=== PATIENT | male | born 2000 | race Caucasian/White ===

== ENCOUNTER 2019-03-12 19:25 | Emergency (ER) | payer OTHER, SELFPAY ==
[2019-03-12 19:26] VITALS: BP 114/75; PULSE 103; RESP 15; TEMP 36.9; O2SAT 98; BMI 23.9
--- NOTE | 2019-03-12 19:34 | ED.DCSUM_ITS ---
History of Present Illness Chief Complaint: Upper Extremity Injury Informant: Patient Onset: Yesterday Mechanism/Context: Blunt Injury - Right thumb. States he bent it back while playing hockey last evening Current Severity: Mild Maximum Severity: Moderate Worsened by: Use of right thumb Relieved by: Better with rest Associated Symptoms: Loss of function Narrative: A 18-year-old male who was playing hockey. He injured his thumb during a game. He states his thumb bent back. He presents because of pain and swelling that is localized over the thenar eminence. He denies paresthesia, anesthesia or motor weakness. Tetanus Immunization: <5 years Prior similar symptoms: No Recent Illness/Hospitalization: No - Past Medical History (1) No significant past medical history Status: Acute Past Medical History - Allergies and Home Meds Allergies/Adverse Reactions: Allergies No Known Allergies Allergy (Verified 03/12/19 19:25) Primary Care Physician: Seble Munguia,Out of [Primary Care Provider] - Prior records reviewed: No Past Medical History: None Surgical History: no surgical history Lives: With Family Smoking Status: Never smoker Alcohol: None Review of Systems Musculoskeletal: Reports: Swelling, Extremity Pain. Denies: Myalgias, Arthralgias, Neck pain, Back pain Skin: Reports: - - Oozing and swelling of the thenar eminence right hand. Denies: Rash, Abrasions Neurological: Denies: Weakness, Parasthesia, Numbness Hematologic: Denies: Easy bruising, Easy bleeding Physical Exam Vital Signs/Narrative: Vital Signs Temp Pulse Resp BP Pulse Ox 03/12/19 19:26 98.4 F 103 H 15 114/75 98 Inital Vital Signs reviewed: Yes General: Well nourished, Well developed Head: Normocephalic, Atraumatic Eyes: Perrl, EOMI Cardiovascular: Regular rate, Regular rhythm, No murmurs Respiratory: No distress Extremeties: There is swelling with discoloration and pain palpation of the thenar eminence. There is pain duration over the MCP joint of the right thumb. Stressing of the ulnar collateral ligament results in a click and discomfort. He is able to extend and flex at the IP joint. There is no subungual hematoma noted. Capillary refill is normal. Two-point discrimination is normal. There is no pain palpation over the anatomical snuffbox. There is no pain the patient with distal radius or ulna. Skin: Normal color, Trauma Neurological: Alert, Oriented x3, Normal Strength, Normal Sensation Psychological: Normal affect, Normal Mood Diagnostic/Tx/Re-eval Chest X-Ray - ED: Read by ED Physician, - - Three-view x-ray of the left thumb was obtained. There is no evidence of fracture, subluxation or dislocation. There is swelling of the thenar eminence. 03/12/19 19:40 Xray Finger [Finger(s) Min 2 Views] [RAD] Stat - Medical Decision Making Tray of the right thumb was obtained to evaluate for fracture versus ligamentous injury. ED Disposition - Plan for ED Patient: Disposition: Home or Assisted Living Diagnosis: Gamekeeper's thumb, traumatic, right Instructions: Sprain Finger Referrals: [facility] Doctor,Out of [Primary Care Provider] - Gwen Orellana DO [STAFF PHYSICIAN] - 5-7 Days Additional Instructions: 1. Elevate right hand as much as possible 2. Apply ice 20 to 30 minutes per application 6-8 times a day 3. Take either 4 Advil every 8 hours or 2 Aleve every 12 hours for the next 3 to 5 days 4. Wear splint at all times. May remove to shower. 5. No hockey until you are cleared by orthopedic surgeon, Dr. Orellana
--- NOTE | 2019-03-12 19:40 | RAD_ITS ---
STUDY: X-RAY - RIGHT HAND, ATTENTION THUMB REASON FOR EXAM: Male, 18 years old. Hockey injury. TECHNIQUE: 3 view(s) of the finger were obtained. COMPARISON: None. FINDINGS: No fracture or dislocation. Joint spaces are well-maintained. Soft tissues and bony structures are unremarkable. RAD/Finger(s) Min 2 Views IMPRESSION: Normal x-ray examination of the thumb. Electronically Signed: Lulu Whitfield MD at 20:29 EST Tel , Service support ,
== END 2019-03-12 20:12 | disposition home or self-care (01) ==
LOC: ED 20:01
PROVIDERS: Emergency Provider Emergency Medicine
DX: S63.641A Sprain of metacarpophalangeal joint of right thumb, initial encounter (principal); X50.1XXA Overexertion from prolonged static or awkward postures, initial encounter; Y93.22 Activity, ice hockey; Y92.39 Other specified sports and athletic area as the place of occurrence of the external cause; Y99.9 Unspecified external cause status
CPT/HCPCS: 73140; 99283